=== PATIENT | female | born 1960 | race Caucasian/White ===

== ENCOUNTER 2016-09-17 13:05 | Emergency (ER) | payer OTHER, MEDICARE ==
[~2016-09-17] VITALS: Ht 162.6 cm; Wt 91.6 kg
[2016-09-17 13:56] LABS: BASO # 0.1 x10^3/uL (0.0-0.2); BASO % 1 % (0-3); EOS % 3 % (0-3); HEMATOCRIT 36.4 % (36.0-47.0); HEMOGLOBIN 12.5 g/dL (12.0-15.5); LYMPH # 2.2 x10^3/uL (1.0-4.8); LYMPH % 33 % (24-48); MEAN CORPUSCULAR HEMOGLOBIN 30 pg (25-35); MEAN CORPUSCULAR HGB CONC 34 g/dL (31-37); MEAN CORPUSCULAR VOLUME 87 fL (79-100); MONO % 8 % (0-9); NEUT % 55 % (31-73); PLATELET COUNT 257 x10^3/uL (140-400); RED CELL DISTRIBUTION WIDTH 13.3 % (11.5-14.5); WHITE BLOOD COUNT 6.7 x10^3/uL (4.0-11.0)
[2016-09-17] MEDS ORDERED: diphenhydrAMINE 50 MG/ML VIAL IVP ONE (14:00)
[2016-09-17] MEDS ORDERED: PROCHLORPERAZINE 10 MG/2 ML VIAL. IV ONE (14:00)
[2016-09-17] MEDS ORDERED: METOCLOPRAMIDE HCL 10 MG/2 ML VIAL. IV ONE (14:00)
[2016-09-17 14:09] LABS: INR 3.6 (0.8-1.1); PROTHROMBIN TIME PATIENT 33.4 SEC (11.7-14.0)
[2016-09-17] MEDS ORDERED: IV NORMAL SALINE 1000ML BAG 1,000 ML IV ONE (14:15)
--- NOTE | 2016-09-17 15:17 | ED.ADGEN ---
Past Medical History Past Medical History: DVT, Migraines, Other Additional Past Medical Histor: factor V, PE Past Surgical History: Appendectomy, Cholecystectomy, , Hysterectomy, Knee Replacement Additional Information: quit smoking 1985 Alcohol Use: None Drug Use: None Adult General Chief Complaint Chief Complaint: HEADACHE HPI HPI Patient is a 56 year old female with history of chronic recurrent migraine headaches who sensitive typical migraine headache yesterday. Headache is located left temporal/retro-orbital region. It is described as throbbing and associated with light sensitivity sensitivity and nausea. Similar in location pattern in severity as previous migraine headaches. Patient took Zofran prior to ED arrival, she is not on abortive migraine prophylaxis. No recent illnesses , migraine triggers. Review of Systems Review of Systems ROS as per HPI. Current Medications Current Medications Current Medications Medications (Trade) Dose Ordered Sig/Wero Start Time Stop Time Status Last Admin Dose Admin Diphenhydramine HCl (Benadryl) 25 mg 1X ONCE 09/17/16 14:00 09/17/16 14:01 DC 09/17/16 13:52 25 MG Haloperidol Lactate (Haldol) 1.25 mg 1X ONCE 09/17/16 15:45 09/17/16 15:46 Metoclopramide HCl (Reglan) 10 mg 1X ONCE 09/17/16 14:00 09/17/16 14:01 DC 09/17/16 13:55 10 MG Prochlorperazine Edisylate (Compazine) 10 mg 1X ONCE 09/17/16 14:00 09/17/16 14:01 DC 09/17/16 13:54 10 MG Sodium Chloride 1,000 ml @ 1,000 mls/hr 1X ONCE 09/17/16 14:15 09/17/16 15:14 DC 09/17/16 14:17 1,000 MLS/HR Allergies Allergies Allergies Coded Allergies Type Severity Reaction Last Updated Verified pravastatin Allergy Intermediate 09/17/16 Yes NSAIDS (Non-Steroidal Anti-Inflamma Allergy Unknown 09/17/16 Yes Penicillins Allergy Unknown 09/17/16 Yes [id number] Antimigraine Agents Allergy Unknown 09/17/16 Yes calcium Allergy Unknown 09/17/16 Yes calcium carbonate Allergy Unknown 09/17/16 Yes ciprofloxacin Allergy Unknown 09/17/16 Yes enoxaparin Allergy Unknown 09/17/16 Yes ibuprofen Allergy Unknown 09/17/16 Yes miconazole Allergy Unknown 09/17/16 Yes prasterone (DHEA) Allergy Unknown 09/17/16 Yes zolmitriptan Allergy Unknown 09/17/16 Yes zolpidem Allergy Unknown 09/17/16 Yes Physical Exam Physical Exam Constitutional: Well developed, well nourished, no acute distress, non-toxic appearance. HENT: Normocephalic, atraumatic, bilateral external ears normal, oropharynx moist, no oral exudates, nose normal. Eyes: PERRLA, EOMI, conjunctiva normal. Neck: Normal range of motion, no tenderness, supple. Cardiovascular:Heart rate regular rhythm, no murmur. Lungs & Thorax: Bilateral breath sounds clear to auscultation. Abdomen: Bowel sounds normal, soft, no tenderness. Skin: Warm, dry, no erythema. Back: No tenderness. Extremities: No tenderness. Neurologic: Alert and oriented X 3, cranial nerves II through XII grossly intact , normal motor function, normal sensory function, no focal deficits noted. Psychologic: Affect normal, judgement normal, mood normal. Current Patient Data Vital Signs Vital Signs Date Time Temp Pulse Resp B/P (MAP) Pulse Ox O2 Delivery O2 Flow Rate FiO2 09/17/16 15:20 98.6 61 15 93/46 (62) 96 Room Air 98.6 Lab Values Laboratory Tests Test 09/17/16 13:50 White Blood Count 6.7 x10^3/uL (4.0-11.0) Red Blood Count 4.20 x10^6/uL (3.50-5.40) Hemoglobin 12.5 g/dL (12.0-15.5) Hematocrit 36.4 % (36.0-47.0) Mean Corpuscular Volume 87 fL (79-100) Mean Corpuscular Hemoglobin 30 pg (25-35) Mean Corpuscular Hemoglobin Concent 34 g/dL (31-37) Red Cell Distribution Width 13.3 % (11.5-14.5) Platelet Count 257 x10^3/uL (140-400) Neutrophils (%) (Auto) 55 % (31-73) Lymphocytes (%) (Auto) 33 % (24-48) Monocytes (%) (Auto) 8 % (0-9) Eosinophils (%) (Auto) 3 % (0-3) Basophils (%) (Auto) 1 % (0-3) Neutrophils # (Auto) 3.7 x10^3uL (1.8-7.7) Lymphocytes # (Auto) 2.2 x10^3/uL (1.0-4.8) Monocytes # (Auto) 0.6 x10^3/uL (0.0-1.1) Eosinophils # (Auto) 0.2 x10^3/uL (0.0-0.7) Basophils # (Auto) 0.1 x10^3/uL (0.0-0.2) Prothrombin Time 33.4 SEC (11.7-14.0) H Prothrombin Time INR 3.6 (0.8-1.1) H Laboratory Tests 09/17/16 13:50 EKG EKG [] Radiology/Procedures Radiology/Procedures [] Course & Med Decision Making Course & Med Decision Making Pertinent Labs and Imaging studies reviewed. (See chart for details) [Chronic recurrent migraine headache. Symptoms improved with IV fluids, antiemetics given in the emergency department. Patient stable vital signs. No focal neurologic deficits. INR therapeutic. Encouraged to follow-up with PCP R migraine specialist for prophylactic medication.] Dragon Disclaimer Dragon Disclaimer This electronic medical record was generated, in whole or in part, using a voice recognition dictation system. SALTY ANTONIO DO Sep 17, 2016 15:17
[2016-09-17] MEDS ORDERED: ERGO500027 PO (15:23)
[2016-09-17] MEDS ORDERED: METO25TA9 PO (15:23)
[2016-09-17] MEDS ORDERED: FENO145T2 PO (15:23)
[2016-09-17] MEDS ORDERED: LACT1CAP8 PO (15:23)
[2016-09-17] MEDS ORDERED: LOSA1TAB17 PO (15:23)
[2016-09-17] MEDS ORDERED: METF-620 PO (15:23)
[2016-09-17] MEDS ORDERED: AMLO10TA2 PO (15:23)
[2016-09-17] MEDS ORDERED: ONDA8TAB9 PO ×2 (15:23)
[2016-09-17] MEDS ORDERED: WARF5TAB7 PO (15:23)
[2016-09-17] MEDS ORDERED: EZET10TA18 PO (15:23)
[2016-09-17] MEDS ORDERED: LEVO50TA5 PO (15:23)
[2016-09-17 15:43] VITALS: BP 126/60
[2016-09-17] MEDS ORDERED: HALOPERIDOL LACTATE 5 MG/ML VIAL. IVP ONE (15:45)
== END 2016-09-17 15:58 | disposition home or self-care (01) ==
LOC: ER 13:05
DX: G43.909 Migraine, unspecified, not intractable, without status migrainosus (principal); Z86.718 Personal history of other venous thrombosis and embolism; Z87.891 Personal history of nicotine dependence; Z90.49 Acquired absence of other specified parts of digestive tract; Z96.659 Presence of unspecified artificial knee joint; Z90.710 Acquired absence of both cervix and uterus; Z86.711 Personal history of pulmonary embolism; Z88.8 Allergy status to other drugs, medicaments and biological substances; Z88.0 Allergy status to penicillin; Z88.1 Allergy status to other antibiotic agents
CPT/HCPCS: 36415; 85027; 85610; 96361; 96374; 96375; 99284; J0780; J1200; J2765; J7030; 99285-25